=== PATIENT | female | born 1985 | race Caucasian/White ===

== ENCOUNTER 2016-06-20 16:09 | Emergency (ER) | payer SELFPAY ==
[2016-06-20 16:23] VITALS: TEMP 98.7; BMI 31.8
--- NOTE | 2016-06-20 18:15 | EDPRACDOC ---
- General Information Chief Complaint: Neck Pain Stated Complaint: NECK PAIN Time Seen by Provider: 06/20/16 17:58 Information Source: Patient Home Medications: Home Medications Diazepam [Valium] 5 mg PO TID PRN #10 tablet 06/20/16 Diazepam [Valium] 5 mg PO TID PRN #10 tablet 06/20/16 Oxycodone HCl [Roxicodone] 5 mg PO Q4 PRN #10 tablet 06/20/16 Oxycodone HCl/Acetaminophen [Oxycodone-Acetaminophen 5-325] 1 tab PO Q4 #12 tablet 06/20/16 Prednisone [Sterapred DS 10 mg/12 day pack] 48 tab PO DIR #1 pack 06/20/16 Allergies/Adverse Reactions: Allergies Allergy/AdvReac Type Severity Reaction Status Date / Time codeine Allergy Rash-Genera Verified 06/20/16 16:23 lized - History of Present Illness Onset: months HPI: BEGINNING OF MARCH STARTED WITH MIDDLE LOWER CERVICAL PAIN. PAIN CONTINUES. HAS SEEN SEVERAL DOCTORS ABOUT NECK PAIN. SENT FROM URGENT CARE TODAY FOR FURTHER EVAL. DID HAVE SHINGLES OUTBREAK SOON AFTER NECK PAIN STARTED. PASSED OUT LAST WEEK AFTER USING THE RESTROOM. TRIED ICE, HEAT, MASSAGE. ED Past Medical History - History Reviewed Yes Nurses notes reviewed and agree except as marked - Patient Medical History Cardiac History: Reports: Heart Attack Psychological History: Reports: Depression Surgical History: Reports: Cholecystectomy - Social Medical History Smoking Status: Heavy tobacco smoker (5 or more cigarettes/day or daily pipe/ cigar) EDM Review of Systems - Review of Systems ROS Negative Except as Marked: Yes All systems reviewed and were negative except as marked - Physical Exam Constitutional: Alert (Awake), No apparent distress Oriented to: Time, Person, Place Last recorded Vital Signs: Last Vital Signs Temp 98.7 F 06/20/16 16:20 Pulse 79 06/20/16 17:52 Resp 20 06/20/16 17:52 BP 134/77 06/20/16 17:52 Pulse Ox 99 06/20/16 17:52 Oxygen Pulse Oxygen Saturation 99 O2 Device Room Air Oxygen Flow Rate Fraction of Inspired Oxygen ( FIO2) - HEENT Head: Normal ( normocephalic) Eye Exam: Normal (PERRL, EOMI, Sclera white) Oropharynx: Normal (Pharynx:Moist without exudate,Gums-no swelling) Nose: No Symptoms Reported (septum midline) Neck: Limited ROM, Tender (MIDLINE AND PARASPINAL.) - Respiratory/Cardiovascular Respiratory: Normal - CTA (BBS clear to auscultation without adventitious sounds ) Cardiovascular: Normal (RRR without murmur, gallop or rub) - GI Auscultation: Normal (NABS) Palpation: Normal (Soft,No rebound or guarding, non distended) Tenderness: Non tender Wadsworth's Sign: Negative - Musculoskeletal Back: Normal (Non-Tender) Extremities: Normal (Normal tone, Pulses 2+ No cyanosis or edema, FROM) - Integumentary Skin: Normal, Warm, Dry Lymphatics: Normal (no adenopathy) - Neurologic Memory Impaired: Normal Motor Function: Normal (Normal tone, Pulses 2+ No cyanosis or edema, FROM) Cranial Nerve: Normal (CN II-X11 intact sensation, strength 5/5) Cerebellar: Normal Mood Description: Normal Perception: Normal - Departure Yes I personally saw and evaluated the patient. Condition: Stable Final Diagnosis: Neck pain Instructions: Cervical Sprain (ED) Education/Counseling Given To: Patient Education/Counseling Given Regarding: Diagnosis, Follow Up Referrals: Dalila Anthony NP [Primary Care Provider] - One Week Pancho Castano MD [Staff Physician] - One Week Prescriptions: New Diazepam [Valium] 5 mg PO TID PRN #10 tablet PRN Reason: Pain Diazepam [Valium] 5 mg PO TID PRN #10 tablet PRN Reason: Pain Oxycodone HCl [Roxicodone] 5 mg PO Q4 PRN #10 tablet PRN Reason: Pain Oxycodone HCl/Acetaminophen [Oxycodone-Acetaminophen 5-325] 1 tab PO Q4 #12 tablet No Action No Home Medications 0 NA DIR #0 info Forms: Excuse Note
[2016-06-20] MEDS ORDERED: DIAZEPAM 5 MG TAB PO ONE (18:16)
[2016-06-20] MEDS ORDERED: HYDROmorphone 1 MG INJECTION IM ONE (18:17)
[2016-06-20] MEDS ORDERED: OXYCODONE HCL 5 MG TABLET PO ONE (18:55)
--- NOTE | 2016-06-20 20:08 | DIRPT ---
CLINICAL DATA: Neck pain for 3 months without reported injury. EXAM: CT CERVICAL SPINE WITHOUT CONTRAST TECHNIQUE: Multidetector CT imaging of the cervical spine was performed without intravenous contrast. Multiplanar CT image reconstructions were also generated. COMPARISON: None. FINDINGS: No fracture or spondylolisthesis is noted. Disc spaces and posterior facet joints appear normal. Minimal anterior osteophyte formation is noted anteriorly at C5-6. Visualized lung apices are unremarkable. IMPRESSION: No significant abnormality seen in the cervical spine. Electronically Signed By: Jamir Kong Jr, M.D. On: 06/20/2016 20:05
[2016-06-20] MEDS ORDERED: PREDNISONE 20 MG TAB PO ONE (20:28)
[2016-06-20 20:39] VITALS: BP 130/72; PULSE 80
== END 2016-06-20 20:37 | disposition home or self-care (01) ==
LOC: ED 16:09
DX: M54.2 Cervicalgia (principal)
CPT/HCPCS: 72125; 96372; 99284; J1170; J3490